=== PATIENT | female | born 1975 | race Caucasian/White ===

== ENCOUNTER 2020-05-03 15:49 | Emergency (ER) | payer OTHER ==
[2020-05-03 17:05] LABS: BASOPHIL 0.2 % (0-2); EOSINOPHIL 0.5 % (0-5); HCT 46.3 % (37.0-47.0); HGB 15.3 g/dl (12.5-16.0); LYMPHOCYTE 19.2 % (15-48); MCH 31.8 pg (25.0-31.0); MCV 96.3 fL (78.0-100.0); MONOCYTE 7.2 % (0-12); NEUTROPHIL 72.7 % (41-80); NRBC 0; PLT 337 K/uL (150-400); RBC 4.81 M/uL (4.20-5.40); RDW 13.7 % (11.5-14.0); WBC 6.2 K/uL (4.0-10.5)
[2020-05-03 17:19] LABS: BILIRUBIN NEGATIVE (NEGATIVE); BLOOD 1+ Ery/uL (NEGATIVE); CLARITY CLEAR (CLEAR); COLOR YELLOW (YELLOW); GLUCOSE (U) NORMAL (NORMAL); LEUKOCYTES NEGATIVE Leu/uL (NEGATIVE); NITRITE NEGATIVE (NEGATIVE); PROTEIN NEGATIVE (NEGATIVE); SPECIFIC GRAVITY >=1.030 (1.001-1.030); UROBILINOGEN 0.2 mg/dL (0.2-1.0); pH 5.5 (5.0-9.0)
[2020-05-03 17:32] LABS: BACTERIA 1+; URINARY WBC RARE
[2020-05-03 17:37] LABS: ALBUMIN 3.4 g/dL (3.4-5.0); BILIRUBIN - TOTAL 0.3 mg/dL (0.2-1.0); CREATININE 0.91 mg/dL (0.51-0.95); GLOBULIN (CALCULATION) 3.6 g/dL
[2020-05-03] MEDS ORDERED: BENTYL10 MG PO (18:54)
[2020-05-03] MEDS ORDERED: ZOFRAN4 M1 PO (18:54)
== END 2020-05-03 19:25 | disposition home or self-care (01) ==
LOC: FER 15:49
PROVIDERS: Emergency Medicine
DX: U07.1 COVID-19 (principal); R10.9 Unspecified abdominal pain; F17.200 Nicotine dependence, unspecified, uncomplicated; Z88.5 Allergy status to narcotic agent
CPT/HCPCS: 36415; 80053; 81001; 82728; 83690; 84145; 85025; 93005; J1885; J2405; J7030; Q9967

== ENCOUNTER 2021-04-23 20:19 | Emergency (ER) | payer OTHER ==
[~2021-04-23 20:19] MED LIST: BENTYL10 MG PO; ZOFRAN4 M1 PO
[2021-04-23 23:37] LABS: BASOPHIL 0.4 % (0-2); EOSINOPHIL 0.2 % (0-5); HCT 40.2 % (37.0-47.0); HGB 13.5 g/dl (12.5-16.0); LYMPHOCYTE 4.7 % (15-48); MCH 31.5 pg (25.0-31.0); MCHC 33.6 g/dL (32.0-36.0); MCV 93.9 fL (78.0-100.0); MONOCYTE 14.6 % (0-12); MPV 8.7 fL (6.0-9.5); NEUTROPHIL 79.5 % (41-80); NRBC 0; PLT 309 K/uL (150-400); RBC 4.28 M/uL (4.20-5.40); RDW 14.4 % (11.5-14.0); WBC 5.4 K/uL (4.0-10.5)
[2021-04-23 23:47] LABS: CREATININE 0.84 mg/dL (0.51-0.95); POTASSIUM 3.4 mmol/L (3.5-5.1)
[2021-04-24 00:11] LABS: INFLUENZA A NAA NEGATIVE (NEGATIVE)
[2021-04-24 00:16] LABS: CORONAVIRUS 2019 SARS-COV-2 POSITIVE (NEGATIVE)
[2021-04-24 01:24] LABS: BILIRUBIN NEGATIVE (NEGATIVE); BLOOD NEGATIVE Ery/uL (NEGATIVE); CLARITY CLEAR (CLEAR); COLOR YELLOW (YELLOW); GLUCOSE (U) NORMAL (NORMAL); LEUKOCYTES NEGATIVE Leu/uL (NEGATIVE); NITRITE NEGATIVE (NEGATIVE); PROTEIN NEGATIVE (NEGATIVE); pH 6.5 (5.0-9.0)
[2021-04-24] MEDS ORDERED: IBUPROFEN800 MG PO (01:32)
[2021-04-24] MEDS ORDERED: VENTOLIN HFA IN18 GM INH (01:32)
[2021-04-24] MEDS ORDERED: PULMICORT FLE180 MCG INH (01:32)
[2021-04-24] MEDS ORDERED: TESSALON PERLE100 MG PO (01:32)
[2021-04-24] MEDS ORDERED: ZPAK PO (01:32)
== END 2021-04-24 01:50 | disposition home or self-care (01) ==
LOC: FER 20:19
PROVIDERS: Emergency Medicine Emergency Medical Services
DX: U07.1 COVID-19 (principal); Z88.5 Allergy status to narcotic agent
CPT/HCPCS: 36415; 71045; 80048; 81003; 85025; J1885; J7030; U0002